=== PATIENT | male | born 1980 | race Caucasian/White ===

== ENCOUNTER 2017-08-22 11:17 | Observation (INO) ==
[2017-08-22] MEDS ORDERED: Ipratropium/Albuterol Neb 3 ML IH ONE (11:19)
[2017-08-22] MEDS ORDERED: 0.9 % Sodium Chloride 1,000 ML IVC ONE (11:19)
--- NOTE | 2017-08-22 11:24 | Emergency Department Note ---
Disposition Clinical Impression: Acute exacerbation of chronic obstructive airways disease Disposition: Admitted As Inpatient Condition: Fair Referrals: NONE,PCP [Primary Care Provider] - Forms: ED Satisfaction Letter Time of Disposition: 13:42 SOB HPI - General Chief Complaint: ED Shortness of Breath/Dyspnea Stated Complaint: KALYANI Time Seen by Provider: 08/22/17 11:19 Source: patient, EMS Mode of arrival: EMS Limitations: no limitations Nursing Notes Reviewed: Yes Vital Signs Reviewed: Yes - History of Present Illness 37-year-old who states he's been coughing and having some shortness of breath which has gotten progressively worse over the last 5 days. Patient was seen at an outside facility and diagnosed with "walking pneumonia". Squad was called on arrival he was in the low 90s pulse ox. Squad reports significant difficulty breathing initially. Patient was given a breathing treatment with some improvement. Should has significant exertional dyspnea. Patient was started on Zithromax yesterday without improvement. Pt Subjective Complaint: shortness of breath, cough Onset (ago): day(s) Context: recent illness (5) Severity: moderate Consistency/Duration: constant Improves with: nothing Worsens with: exertion Associated symptoms: Reports: chest pain (With cough), fever, cough Treatment prior to arrival: other (Antibiotics) Sputum production: Yes - Related Data Home Medications Medication Instructions Recorded Confirmed Amitriptyline HCl 100 mg PO HS 05/06/16 05/06/16 Aspirin 325 mg PO DAILY 05/06/16 05/06/16 Beclomethasone Diprop 80mcg [QVAR 2 puff IH BID 05/06/16 05/06/16 80 mcg] HYDROcodone/Acet 7.5/325 mg [[place] 1 tab PO Q8H PRN 05/06/16 05/06/16 7.5-325 mg] Naproxen [Naprosyn] 500 mg PO BID 05/06/16 05/06/16 Previous Rx's Medication Instructions Recorded Docusate [Colace] 100 mg PO BID PRN #90 capsule 05/08/16 Folic Acid 1 mg PO DAILY #30 tablet 05/08/16 HYDROcodone/Acet 7.5/325 mg [[place] 1 tab PO Q6HR PRN #28 tablet 05/08/16 7.5-325 mg] NIFEdipine [Procardia] 10 mg PO TID #90 capsule 05/08/16 Thiamine (B-1) [Vitamin B-1] 100 mg PO DAILY #30 tablet 05/08/16 Allergies Allergy/AdvReac Type Severity Reaction Status Date / Time codeine Allergy See Verified 08/22/17 11:18 Comments Constitutional: Reports: fever. Denies: chills, weakness, weight change Eyes: Denies: eye pain, eye discharge, vision change ENT ED: Denies: ear pain, throat pain, dental pain, hearing loss, epistaxis, congestion, dysphagia Cardiovascular: Denies: chest pain, palpitations, dyspnea on exertion, edema, syncope Respiratory: Reports: cough, dyspnea, wheezes. Denies: hemoptysis, stridor Gastrointestinal: Denies: abdominal pain, nausea, vomiting, diarrhea, constipation, hematemesis, melena, hematochezia Genitourinary: Denies: urgency, dysuria, frequency, hematuria Musculoskeletal: Denies: back pain, neck pain, arthralgia, myalgia Integumentary: Denies: rash, abrasion, lesions Neurological: Denies: headache, weakness, numbness, paresthesias, confusion, abnormal gait, vertigo Psychiatric: Denies: anxiety, depression, suicidal thoughts, homicidal thoughts , auditory hallucinations, visual hallucinations Endocrine: Denies: fatigue Hematological/Lymphatic: Denies: easy bleeding, easy bruising Allergic/Immunologic: Denies: facial swelling, urticaria Past Medical History - Past Medical History Medical history: Reports: hyperlipidemia, myocardial infarction, other Surgical history: Reports: other Psychiatric history: Reports: anxiety, depression - Social History Smoking Status: Current every day smoker Smokeless Tobacco Status: Yes Alcohol use: Reports: occasionally Drug use: Reports: marijuana Physical Exam - General Limitations: no limitations General appearance: alert, in no apparent distress - Head Head exam: atraumatic, normocephalic, normal inspection - Eye Eye exam: Present: normal appearance, PERRL, EOMI - ENT ENT exam: normal exam, normal oropharynx, mucous membranes moist - Neck Neck exam: Present: normal inspection, full ROM, trachea midline - Chest Chest inspection: Present: normal inspection, symmetric chest wall rise - Respiratory Respiratory exam: Present: wheezes, accessory muscle use, prolonged expiratory phase - Cardiovascular Cardiovascular exam: Present: regular rate, normal rhythm, normal heart sounds - Abdominal Exam Abdominal exam: Present: soft, Non-Tender. Absent: tenderness, distention, guarding, rebound, rigidity - Extremities Exam Extremities exam: Present: normal inspection, full ROM. Absent: tenderness, pedal edema - Expanded Lower Extremity Exam Neurovascular/Tendon exam: Absent: motor deficit, sensory deficit, tendon deficit Gait: observed and normal - Back Exam Back exam: Present: normal inspection, full ROM. Absent: tenderness - Neurological Exam Neurological exam: Present: alert, oriented X3 - Psychiatric Psychiatric exam: Present: normal affect, normal mood Course - Reevaluation(s) Reevaluation #1: 37-year-old male who has a 20+-pack-year history who comes in with increasing shortness of breath. On arrival patient has generalized wheezing. Patient was seen at outside facility and told had pneumonia. Workup here indicated his chest x-ray was negative EKG was normal. Time: 13:41 - Consultations Consultation #1: Discussed with Dr. Ayala, admit. Time: 13:41 Vital Signs Temperature 97.5 F L 08/22/17 11:22 Pulse Rate 91 08/22/17 11:22 Respiratory Rate 19 08/22/17 11:22 Blood Pressure 127/76 08/22/17 11:22 O2 Sat by Pulse Oximetry 100 08/22/17 11:22 Temperature 97.5 F L 08/22/17 11:22 Pulse Rate 83 08/22/17 13:21 Respiratory Rate 18 08/22/17 13:21 Blood Pressure 125/87 08/22/17 13:21 O2 Sat by Pulse Oximetry 100 08/22/17 13:21 Oxygen Delivery Oxygen Delivery Nasal Cannula Shortness of Breath/Dyspnea - Lab Data Result diagrams: 08/22/17 11:33 08/22/17 11:33 Lab Results 08/22/17 08/22/17 08/22/17 Range/Units 11:33 11:33 11:33 WBC 8.8 (4.3-11.1) K/mcL RBC 3.10 L (4.19-5.50) M/mcL Hgb 9.5 L (12.9-16.9) g/dL Hct 28.6 L (37.5-50.1) % MCV 92.3 (83.0-100.0) fL MCH 30.6 (28.0-33.3) pg MCHC 33.2 (31.6-35.5) g/dL RDW 13.0 (11.5-14.5) % Plt Count 403 H (140-400) K/mcL MPV 8.1 L (9.4-12.4) fL Immature Gran % 0.9 (0-4) % Seg Neutrophils % 52.4 % Lymphocytes % 33.2 % Monocytes % 8.8 % Eosinophils % 4.0 % Basophils % 0.7 % Neutrophils # 4.6 (1.6-8.9) K/mcL Lymphocytes # 2.9 (0.6-4.6) K/mcL Monocytes # 0.8 (0.0-1.3) K/mcL Eosinophils # 0.4 (0.0-0.6) K/mcL Basophils # 0.1 (0.0-0.2) K/mcL Immature Plt Fraction 1.3 (1.1-6.1) % Sodium 132 L (136-145) mEq/L Potassium 3.7 (3.5-5.1) mEq/L Chloride 99 (98-107) mEq/L Carbon Dioxide 27 (23-29) mEq/L BUN 15 (6-20) mg/dL Creatinine 0.84 (0.70-1.30) mg/dL Est GFR ( Amer) > 60 (> 60) Est GFR (Non-Af Amer) > 60 (> 60) BUN/Creatinine Ratio 18 (6-26) Glucose 61 L (70-105) mg/dL Calculated Osmolality 273 L (280-300) Lactic Acid 1.1 (0.5-2.2) mmol/L Calcium 8.3 L (8.6-10.3) mg/dL Total Bilirubin 0.4 (0.3-1.0) mg/dL Direct Bilirubin 0.1 (0.0-0.2) mg/dL Indirect Bilirubin 0.3 (0.0-1.2) mg/dL AST 13 (13-39) Units/L ALT 21 (7-52) Units/L Alkaline Phosphatase 62 (34-104) Units/L Troponin I (< 0.04) ng/mL B-Natriuretic Peptide (Less than 100) pg/mL Serum Total Protein 5.8 L (6.4-8.9) g/dL Albumin 3.6 (3.5-5.7) g/dL Globulin 2.2 L (2.4-3.5) g/dL Albumin/Globulin Ratio 1.6 (1.1-2.2) 08/22/17 08/22/17 Range/Units 11:33 11:33 WBC (4.3-11.1) K/mcL RBC (4.19-5.50) M/mcL Hgb (12.9-16.9) g/dL Hct (37.5-50.1) % MCV (83.0-100.0) fL MCH (28.0-33.3) pg MCHC (31.6-35.5) g/dL RDW (11.5-14.5) % Plt Count (140-400) K/mcL MPV (9.4-12.4) fL Immature Gran % (0-4) % Seg Neutrophils % % Lymphocytes % % Monocytes % % Eosinophils % % Basophils % % Neutrophils # (1.6-8.9) K/mcL Lymphocytes # (0.6-4.6) K/mcL Monocytes # (0.0-1.3) K/mcL Eosinophils # (0.0-0.6) K/mcL Basophils # (0.0-0.2) K/mcL Immature Plt Fraction (1.1-6.1) % Sodium (136-145) mEq/L Potassium (3.5-5.1) mEq/L Chloride (98-107) mEq/L Carbon Dioxide (23-29) mEq/L BUN (6-20) mg/dL Creatinine (0.70-1.30) mg/dL Est GFR ( Amer) (> 60) Est GFR (Non-Af Amer) (> 60) BUN/Creatinine Ratio (6-26) Glucose (70-105) mg/dL Calculated Osmolality (280-300) Lactic Acid (0.5-2.2) mmol/L Calcium (8.6-10.3) mg/dL Total Bilirubin (0.3-1.0) mg/dL Direct Bilirubin (0.0-0.2) mg/dL Indirect Bilirubin (0.0-1.2) mg/dL AST (13-39) Units/L ALT (7-52) Units/L Alkaline Phosphatase (34-104) Units/L Troponin I < 0.03 (< 0.04) ng/mL B-Natriuretic Peptide 6 (Less than 100) pg/mL Serum Total Protein (6.4-8.9) g/dL Albumin (3.5-5.7) g/dL Globulin (2.4-3.5) g/dL Albumin/Globulin Ratio (1.1-2.2) - EKG Data EKG attestation: Yes I reviewed and interpreted this EKG. EKG shows normal: Reports: sinus rhythm Rate: Reports: normal Rhythm: Reports: NSR Interpretation: Reports: no acute changes
[2017-08-22 11:45] LABS: Basophils # 0.1 K/mcL (0.0-0.2); Basophils % 0.7 %; Eosinophils # 0.4 K/mcL (0.0-0.6); Hematocrit 28.6 % (37.5-50.1); Hemoglobin 9.5 g/dL (12.9-16.9); Immature Granulocytes % 0.9 % (0-4); Immature Platelets 1.3 % (1.1-6.1); Lymphocytes # 2.9 K/mcL (0.6-4.6); Lymphocytes % 33.2 %; Mean Corpuscular HGB Conc 33.2 g/dL (31.6-35.5); Mean Corpuscular Hemoglobin 30.6 pg (28.0-33.3); Mean Corpuscular Volume 92.3 fL (83.0-100.0); Mean Platelet Volume 8.1 fL (9.4-12.4); Monocytes # 0.8 K/mcL (0.0-1.3); Monocytes % 8.8 %; Neutrophils # 4.6 K/mcL (1.6-8.9); Platelet Count 403 K/mcL (140-400); Segmented Neutrophils % 52.4 %
[2017-08-22 12:20] LABS: BUN/Creatinine Ratio 18 (6-26); Blood Urea Nitrogen 15 mg/dL (6-20); Calcium 8.3 mg/dL (8.6-10.3); Carbon Dioxide 27 mEq/L (23-29); Chloride 99 mEq/L (98-107); Glucose 61 mg/dL (70-105); Osmolality,Calculated 273 (280-300); Potassium 3.7 mEq/L (3.5-5.1); Sodium 132 mEq/L (136-145); eGFR For African Americans > 60 (> 60); eGFR For Non-African Americans > 60 (> 60)
[2017-08-22 13:13] LABS: Alanine Aminotransferase 21 Units/L (7-52); Albumin 3.6 g/dL (3.5-5.7); Albumin/Globulin Ratio 1.6 (1.1-2.2); Alkaline Phosphatase 62 Units/L (34-104); Aspartate Amino Transferase 13 Units/L (13-39); Bilirubin,Direct 0.1 mg/dL (0.0-0.2); Bilirubin,Indirect 0.3 mg/dL (0.0-1.2); Bilirubin,Total 0.4 mg/dL (0.3-1.0); Globulin 2.2 g/dL (2.4-3.5); Total Protein 5.8 g/dL (6.4-8.9)
[2017-08-22] MEDS ORDERED: Naloxone 0.4 MG/ML INJ IVP PRN (13:58)
--- NOTE | 2017-08-22 14:07 | Internal Med History&Physical ---
<Levi Last - Last Filed: 08/22/17 14:01> Date of Encounter: 08/22/17 Time of Encounter: 14:01 Assessment and Plan (1) Acute exacerbation of chronic obstructive airways disease Status: Acute acute exacerbation of COPD presents today with exertional dyspnea and cough x5- days. CXR unremarkable, lungs diminished to auscultation, -Duoneb q4h karin -Continuous tele, and Spo2 monitoring -Azithromycin IVPB daily (2) Pericarditis Status: Suspected Chest pain and orthopnea. He reports the chest pain if exacerbated with lying and relieved by sitting up. Denies any IV drug use history, however, has tracks upon both upper extremities. There is some concern for pleural effusion , heart tones distant to auscultation. No ST changes per EKG, troponin negative -urine drug screen -echocardiogram- follow -trend troponin -blood cultures Qualifiers: Pericarditis type: unspecified type Chronicity: unspecified Qualified Code(s): I31.9 - Disease of pericardium, unspecified (3) Anemia Status: Acute Presents today with shortness of breath exacerbated with activity and lying flat. Found to have an H&H of 9.5/28.6. CXR negative for acute process. The anemia is also contributing to his clinical presentation. He denies any hematemesis, hematochezia or melena. Lungs diminished to auscultation, he is mildly SOB with activity, no hypoxia, Sp02 100% on room air while resting -Iron studies, B12, Folate -occult blood stool CBCD in the morning Qualifiers: Anemia type: unspecified type Qualified Code(s): D64.9 - Anemia, unspecified (4) DVT prophylaxis Status: Acute ambulate ad saira. Internal Medicine - H&P: HPI Chief complaint: shortness of breath Admitted From: Home Plans for Post Hospital Care: Home History of present illness: Mr. De Oliveira is a 37 year old male with no prior PMH. He presents to [facility] today with shortness of breath, and a productive cough that has been getting progressively worse over the last 5-days. He states that he was at [facility] yesterday and was diagnosed with "walking pneumonia". He presented to the ED with exertional dyspnea with Spo2 in the low 90's He admits to subjective fevers, productive cough, palpitations, tachycardia, Chest pain exacerbated with lying flat and improves with sitting upright, orthopnea, and hemoptysis. He denies any drug use except marijuana, however, he appears to have multiple tracks on BUE. He denies any edema, abdominal pain, N/V/D, flank pain, dysuria, or extremity swelling/pain. He was given bronchodilators in the ED and his dyspnea somewhat improved. CXR today is negative. He does appear to have some anemia with a H&H of 9.5/28.6. Past Med Surg Social Fam HX - Past Medical History Medical history: hyperlipidemia, myocardial infarction, other Psychiatric history: anxiety, depression - Past Surgical History Surgical History: other - Social History Smoking Status: Current every day smoker Smokeless Tobacco Status: Yes Alcohol use: occasionally Drug use: marijuana - Family History Grandfather Adopted: No Hx Family Cancer: Yes (Lung cancer) Internal Medicine - H&P: Meds Azithromycin [Azithromycin 6-Tab Pack] 1 tab PO AD 08/22/17 [History] Cyclobenzaprine [Flexeril] 10 mg PO TID 08/22/17 [History] FLUoxetine HCl [PROzac] 20 mg PO BID 08/22/17 [History] HYDROcodone/Acet 7.5/325 mg [[place] 7.5-325 mg] 1 tab PO Q8H PRN 08/22/17 [ History] Cyanocobalamin/Folic Acid [Vitamin X99-Wchxk Acid Tablet] 1 each PO DAILY #30 tablet 08/24/17 [Rx] 3 Allergy/AdvReac Type Severity Reaction Status Date / Time acetaminophen Allergy Difficulty Verified 08/22/17 17:08 [From Tylenol-Codeine #3] Breathing codeine Allergy See Verified 08/22/17 11:18 Comments All Systems PM: A 10-system review of systems was performed and is negative for pertinent findings except as documented above in the HPI. - Constitutional Constitutional: as per HPI - EENT Eyes: no change in vision, no discharge, no pain, no photophobia Ears: no ear discharge, no ear pain, no tinnitus Nose, mouth and throat: no dysphagia, no nasal discharge, no neck pain, no sore throat - Cardiovascular Cardiovascular ROS IM: as per HPI, chest pain, dyspnea, dyspnea on exertion, orthopnea, palpitations, paroxysmal nocturnal dyspnea, no edema, no syncope - Respiratory Respiratory: cough, hemoptysis, pain with cough, no dyspnea, no dyspnea on exertion, no wheezing, no pain on inspiration, no chest congestion, no excessive phlegm production, no change in phlegm color - Gastrointestinal Gastrointestinal: no abdominal pain, no diarrhea, no hematemesis, no hematochezia, no melena, no nausea, no vomiting - Musculoskeletal Musculoskeletal ROS IM: no numbness, no tingling - Integumentary Integumentary IM: no rash, no unusual bruising - Neurological Neurological ROS: no confusion, no convulsions, no focal weakness, no numbness, no tingling, no tremor(s) - Constitutional Vitals: Temp Pulse Resp BP Pulse Ox 97.5 F L 83 18 125/87 100 08/22/17 11:22 08/22/17 13:21 08/22/17 13:21 08/22/17 13:21 08/22/17 13:21 General appearance: Present: cooperative, A&O X 3, no acute distress, answers questions appropriately - Head Head exam: Present: atraumatic, normocephalic - Eye Eye exam: Present: PERRL, conjuntiva pink, sclera anicteric Pupils: Present: PERRL - Neck Neck exam general surgery: Present: supple, trachea midline. Absent: lymphadenopathy - Respiratory Respiratory exam: Present: decreased breath sounds, CTAB. Absent: accessory muscle use, chest wall tenderness, prolonged expiratory phase, rales, respiratory distress, rhonchi, stridor, wheezes, tachypnea - Cardiovascular Cardiovascular exam: Present: distant heart sounds, RRR, +S1, +S2. Absent: diastolic murmur, gallop, irregular rhythm, JVD, rubs, systolic murmur, tachycardia - GI/Abdominal GI/Abdominal exam: Present: normal bowel sounds, soft, no peritoneal signs. Absent: distended, tenderness - Extremities Exam Extremities exam: Present: warm, radial pulses palpable and symmetrical. Absent : calf tenderness, cyanotic, pedal edema - Neurological Exam Neurological exam: Present: CN II-XII intact, oriented X3, no focal deficits. Absent: pronater drift, facial droop, speech deficit - Skin Skin exam: Present: dry, intact Internal Med - H&P Results - Labs CBC & Chem 7: 08/22/17 11:33 08/22/17 11:33 Labs: Short CBC 02/10/18 Range/Units 11:33 WBC 8.8 (4.3-11.1) K/mcL Hgb 9.5 L (12.9-16.9) g/dL Hct 28.6 L (37.5-50.1) % Plt Count 403 H (140-400) K/mcL Neutrophils # 4.6 (1.6-8.9) K/mcL BMP 08/22/17 11:33 Sodium 132 L Potassium 3.7 Chloride 99 Carbon Dioxide 27 BUN 15 Creatinine 0.84 Glucose 61 L Calcium 8.3 L Cardiac Enzymes 08/22/17 Range/Units 11:33 Troponin I < 0.03 (< 0.04) ng/mL Liver Function 08/22/17 Range/Units 11:33 Total Bilirubin 0.4 (0.3-1.0) mg/dL Direct Bilirubin 0.1 (0.0-0.2) mg/dL AST 13 (13-39) Units/L ALT 21 (7-52) Units/L Alkaline Phosphatase 62 (34-104) Units/L Albumin 3.6 (3.5-5.7) g/dL - EKG Data -: EKG Interpreted by Myself EKG shows normal: sinus rhythm Rate: normal - Impressions ITS Impressions Chest X-Ray 08/22/17 11:19 IMPRESSION: No acute cardiopulmonary process. D/ / 08/22/2017 12:50:53 Tom Humphries MD / [facility] Interpreting Provider: Tom Humphries MD <Aren Ayala - Last Filed: 08/24/17 19:56> Date of Encounter: 08/24/17 Internal Medicine - H&P: HPI History of present illness: Mr. De Oliveira is a 37 year old male All Systems PM: A 10-system review of systems was performed and is negative for pertinent findings except as documented above in the HPI. - Constitutional Vitals: Temp Pulse Resp BP Pulse Ox 98.1 F 90 17 149/76 99 08/24/17 04:48 08/24/17 04:48 08/24/17 08:09 08/24/17 04:48 08/24/17 08:09 Internal Med - H&P Results - Labs CBC & Chem 7: 08/24/17 06:48 08/23/17 03:44 Labs: Short CBC 08/24/17 Range/Units 06:48 WBC 7.8 (4.3-11.1) K/mcL Hgb 9.0 L (12.9-16.9) g/dL Hct 27.2 L (37.5-50.1) % Plt Count 411 H (140-400) K/mcL Neutrophils # 4.5 (1.6-8.9) K/mcL - Impressions ITS Impressions Echocardiogram 08/23/17 13:55 Impressions: Normal left ventricular diastolic function. LVEF 55-60%. No significant valvular dysfunction. Left Ventricular Wall Motion: Rest Echo Findings All wall segments showed normal motion. Findings: Study Quality * Technically adequate exam. Right Ventricle * Normal right ventricular structure and function. Left Atrium * Normal left atrial size. Mitral Valve * Normal mitral valve structure and function. Interatrial Septum * No evidence of PFO by color Doppler. Aorta * Normally sized aortic root. Pericardium * The pericardium appears normal. ECG Findings * Normal sinus rhythm. Tricuspid Valve * Trace tricuspid regurgitation. * No tricuspid stenosis. * Estimated RVSP is 11 mmHg. * No evidence of pulmonary hypertension. Aortic Valve * No aortic stenosis. * Aortic valve not well visualized. * Trace aortic regurgitation. IVC * Normal IVC dimensions and inspiratory collapse. Left Ventricle * Normal left ventricular diastolic function. * LVEF 55-60%. Right Atrium * Mildly dilated right atrium. - Attending Attestation I examined this patient and my medical decision-making was reviewed with the Resident Physician. I agree with the documented findings, disposition and treatment plan as described except to the extent set forth below.
[2017-08-22 15:02] LABS: Amphetamine Screen,Urine Negative ng/mL (Cutoff=1000); Barbiturate Screen,Urine Negative ng/mL (Cutoff=200); Benzodiazepines Screen,Urine Negative ng/mL (Cutoff=200); Cannabinoid Screen,Urine Positive ng/mL (Cutoff = 50); Cocaine Screen,Urine Negative ng/mL (Cutoff= 300); Opiate Screen,Urine Negative ng/mL (Cutoff=300); Phencyclidine Screen,Urine Negative ng/mL (Cutoff=25)
[2017-08-22 15:21] LABS: Folate 14.6 ng/mL (3.0-16.0)
[2017-08-22 15:26] LABS: % Iron Saturation 13 % (20-55); Iron 45 mcg/dL (65-175); Transferrin 244 mg/dL (203-362)
[2017-08-22] MEDS: Ipratropium/Albuterol Neb 3 ML IH SCH ×2 (15:49→20:46)
[2017-08-22] MEDS: FLUoxetine 20 MG CAPSULE PO SCH (19:44)
[2017-08-22] MEDS ORDERED: clonazePAM 1 MG TABLET PO ONE (20:43)
[2017-08-23] MEDS: Ipratropium/Albuterol Neb 3 ML IH SCH ×7 (00:34→23:54)
[2017-08-23] MEDS ORDERED: Ibuprofen 400 MG TABLET PO PRN (03:14)
[2017-08-23 04:26] LABS: Basophils % 0.5 %; Eosinophils # 0.4 K/mcL (0.0-0.6); Eosinophils % 5.2 %; Hematocrit 25.3 % (37.5-50.1); Hemoglobin 8.5 g/dL (12.9-16.9); Immature Granulocytes % 0.7 % (0-4); Lymphocytes # 3.5 K/mcL (0.6-4.6); Lymphocytes % 45.4 %; Mean Corpuscular HGB Conc 33.6 g/dL (31.6-35.5); Mean Corpuscular Hemoglobin 30.8 pg (28.0-33.3); Mean Corpuscular Volume 91.7 fL (83.0-100.0); Mean Platelet Volume 8.4 fL (9.4-12.4); Monocytes # 0.5 K/mcL (0.0-1.3); Monocytes % 7.1 %; Neutrophils # 3.1 K/mcL (1.6-8.9); Platelet Count 312 K/mcL (140-400); Red Blood Count 2.76 M/mcL (4.19-5.50); Red Cell Distribution Width 13.2 % (11.5-14.5); Segmented Neutrophils % 41.1 %
[2017-08-23 05:12] LABS: BUN/Creatinine Ratio 16 (6-26); Blood Urea Nitrogen 11 mg/dL (6-20); Calcium 8.2 mg/dL (8.6-10.3); Carbon Dioxide 26 mEq/L (23-29); Chloride 107 mEq/L (98-107); Glucose 94 mg/dL (70-105); Osmolality,Calculated 287 (280-300); Potassium 4.2 mEq/L (3.5-5.1); Sodium 139 mEq/L (136-145); eGFR For African Americans > 60 (> 60); eGFR For Non-African Americans > 60 (> 60)
[2017-08-23] MEDS: FLUoxetine 20 MG CAPSULE PO SCH ×2 (07:52→19:10)
--- NOTE | 2017-08-23 13:54 | Internal Med Progress Note ---
Date of Encounter: 08/23/17 Time of Encounter: 09:45 - Assessment and plan (1) Anemia Current Visit: Yes Status: Acute Assessment and plan: Patient remains anemic. We will consult GI for further evaluation. Continue to monitor blood counts. Patient may need upper GI endoscopy. Vitamin B12 levels are low. We will replete with subcutaneous injections. Qualifiers: Anemia type: B12 deficiency Vitamin B12 deficiency anemia type: other B12 deficiency Qualified Code(s): D51.8 - Other vitamin B12 deficiency anemias (2) Acute exacerbation of chronic obstructive airways disease Current Visit: Yes Status: Acute Assessment and plan: Improved. Continue bronchodilators. (3) Pericarditis Current Visit: Yes Status: Ruled-out Assessment and plan: Cardiac echocardiogram does not show any signs of pericarditis or effusion. Qualifiers: Pericarditis type: unspecified type Chronicity: unspecified Qualified Code(s): I31.9 - Disease of pericardium, unspecified (4) DVT prophylaxis Current Visit: Yes Status: Acute (5) Bipolar disorder Current Visit: Yes Status: Suspected Assessment and plan: Patient having sweats or thoughts and ideas. Concerning for underlying bipolar disorder. He does have a history of traumatic brain injury and depression. Takes Prozac. She wants to see psychiatrist. We will consult Psychiatry once medically stable. Qualifiers: Active/Remission status: currently active Current bipolar episode type: manic Current episode severity: mild Qualified Code(s): F31.11 - Bipolar disorder, current episode manic without psychotic features, mild - Subjective Interval history: Patient is awake and alert. Appears to having flights of thoughts and ideas. Denies any chest pain or shortness of breath at this time. Does complain of generalized body aches. - Constitutional Vitals: Temp Pulse Resp BP Pulse Ox 98.6 F 93 17 119/78 98 08/23/17 09:58 08/23/17 09:58 08/23/17 11:24 08/23/17 09:58 08/23/17 11:24 General appearance: Present: cooperative, A&O X 3, no acute distress, answers questions appropriately - Neck Neck exam general surgery: Present: supple, trachea midline. Absent: lymphadenopathy - Respiratory Respiratory exam: Present: CTAB. Absent: accessory muscle use, rales, rhonchi, wheezes - Cardiovascular Cardiovascular exam: Present: RRR, +S1, +S2. Absent: diastolic murmur, gallop, rubs, systolic murmur - GI/Abdominal GI/Abdominal exam: Present: normal bowel sounds, soft, no peritoneal signs. Absent: distended, tenderness - Extremities Exam Extremities exam: Present: warm, radial pulses palpable and symmetrical. Absent : calf tenderness, cyanotic, pedal edema - Neurological Exam Neurological exam: Present: alert, CN II-XII intact, oriented X3, no focal deficits. Absent: facial droop, speech deficit Internal Medicine: Result - Labs CBC & Chem 7: 08/23/17 03:44 08/23/17 03:44 Labs: Short CBC 08/23/17 Range/Units 03:44 WBC 7.6 (4.3-11.1) K/mcL Hgb 8.5 L (12.9-16.9) g/dL Hct 25.3 L (37.5-50.1) % Plt Count 312 (140-400) K/mcL Neutrophils # 3.1 (1.6-8.9) K/mcL BMP 08/23/17 03:44 Sodium 139 Potassium 4.2 Chloride 107 Carbon Dioxide 26 BUN 11 Creatinine 0.70 Glucose 94 Calcium 8.2 L Cardiac Enzymes 08/22/17 Range/Units 18:22 Troponin I < 0.03 (< 0.04) ng/mL - Impressions Impressions Echocardiogram 08/23/17 13:55 Impressions: Normal left ventricular diastolic function. LVEF 55-60%. No significant valvular dysfunction. Left Ventricular Wall Motion: Rest Echo Findings All wall segments showed normal motion. Findings: Study Quality * Technically adequate exam. Right Ventricle * Normal right ventricular structure and function. Left Atrium * Normal left atrial size. Mitral Valve * Normal mitral valve structure and function. Interatrial Septum * No evidence of PFO by color Doppler. Aorta * Normally sized aortic root. Pericardium * The pericardium appears normal. ECG Findings * Normal sinus rhythm. Tricuspid Valve * Trace tricuspid regurgitation. * No tricuspid stenosis. * Estimated RVSP is 11 mmHg. * No evidence of pulmonary hypertension. Aortic Valve * No aortic stenosis. * Aortic valve not well visualized. * Trace aortic regurgitation. IVC * Normal IVC dimensions and inspiratory collapse. Left Ventricle * Normal left ventricular diastolic function. * LVEF 55-60%. Right Atrium * Mildly dilated right atrium. Consult Discharge Plan - Plan Referrals: NONE,PCP [Primary Care Provider] -
[2017-08-23] MEDS: Folic Acid 1 MG TABLET PO SCH (15:55)
[2017-08-23] MEDS: Cyanocobalamin (B-12) 1,000 MCG/ML VIAL SQ SCH (15:55)
[2017-08-23] MEDS: *HR* HYDROcodone/Acet 7.5/325 mg TABLET PO PRN ×2 (17:30)
[2017-08-23 19:10] LABS: Hematocrit 27.7 % (37.5-50.1)
[2017-08-24] MEDS: Ipratropium/Albuterol Neb 3 ML IH SCH ×3 (04:41→08:08)
[2017-08-24 04:50] VITALS: BP 149/76
[2017-08-24 07:38] LABS: Basophils # 0.1 K/mcL (0.0-0.2); Basophils % 0.6 %; Eosinophils # 0.5 K/mcL (0.0-0.6); Eosinophils % 5.8 %; Hematocrit 27.2 % (37.5-50.1); Immature Granulocytes % 0.6 % (0-4); Lymphocytes # 2.2 K/mcL (0.6-4.6); Lymphocytes % 28.4 %; Mean Corpuscular HGB Conc 33.1 g/dL (31.6-35.5); Mean Corpuscular Volume 93.8 fL (83.0-100.0); Mean Platelet Volume 8.3 fL (9.4-12.4); Monocytes # 0.6 K/mcL (0.0-1.3); Monocytes % 7.5 %; Neutrophils # 4.5 K/mcL (1.6-8.9); Platelet Count 411 K/mcL (140-400); Red Cell Distribution Width 13.4 % (11.5-14.5); Segmented Neutrophils % 57.1 %
--- NOTE | 2017-08-24 07:39 | Electrocardiograph Report ---
[address] [place], [place] [address] Test Date: 2017-08-22 Pat Name: Dre De Oliveira Department: 103 Room: 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
[2017-08-24] MEDS: Cyanocobalamin (B-12) 1,000 MCG/ML VIAL SQ SCH (08:03)
[2017-08-24] MEDS: *HR* HYDROcodone/Acet 7.5/325 mg TABLET PO PRN (08:03)
[2017-08-24] MEDS: Folic Acid 1 MG TABLET PO SCH (08:03)
[2017-08-24] MEDS: FLUoxetine 20 MG CAPSULE PO SCH (08:03)
[2017-08-24] MEDS ORDERED: Ipratropium/Albuterol Neb 3 ML IH PRN (09:48)
[2017-08-24] MEDS ORDERED: FLUARIX QUAD 2017-18 36MOS UP/PF 0.5 ML SYRINGE IM ONE (12:06)
--- NOTE | 2017-08-24 13:11 | Internal Med Progress Note ---
Date of Encounter: 08/24/17 Time of Encounter: 10:50 - Assessment and plan (1) Anemia Status: Acute Assessment and plan: Blood counts have remained stable. Gastroenterology consultation. Plan for upper GI endoscopy. Continue vitamin B12 supplementation. Qualifiers: Anemia type: B12 deficiency Vitamin B12 deficiency anemia type: other B12 deficiency Qualified Code(s): D51.8 - Other vitamin B12 deficiency anemias (2) Acute exacerbation of chronic obstructive airways disease Status: Acute Assessment and plan: Improved. No longer wheezing. Continue bronchodilators as needed. (3) DVT prophylaxis Status: Acute (4) Bipolar disorder Status: Suspected Assessment and plan: We will consult psychiatry once upper GI endoscopy is done Qualifiers: Active/Remission status: currently active Current bipolar episode type: manic Current episode severity: mild Qualified Code(s): F31.11 - Bipolar disorder, current episode manic without psychotic features, mild - Subjective Interval history: Patient awake and alert. Denies any new complaints. Continues to have flights of thoughts and ideas. He is concerned that he cannot eat as he is being scheduled for upper GI endoscopy. Explained to him the procedure and that he will will treat soon after. Expressed understanding. - Constitutional Vitals: Temp Pulse Resp BP Pulse Ox 98.1 F 90 17 149/76 99 08/24/17 04:48 08/24/17 04:48 08/24/17 08:09 08/24/17 04:48 08/24/17 08:09 General appearance: Present: cooperative, A&O X 3, no acute distress, answers questions appropriately - Respiratory Respiratory exam: Present: CTAB. Absent: accessory muscle use, rales, rhonchi, wheezes - Cardiovascular Cardiovascular exam: Present: RRR, +S1, +S2. Absent: diastolic murmur, gallop, rubs, systolic murmur - GI/Abdominal GI/Abdominal exam: Present: normal bowel sounds, soft, no peritoneal signs. Absent: distended, tenderness - Extremities Exam Extremities exam: Present: warm, radial pulses palpable and symmetrical. Absent : calf tenderness, cyanotic, pedal edema Internal Medicine: Result - Labs CBC & Chem 7: 08/24/17 06:48 08/23/17 03:44 Labs: Short CBC 08/23/17 08/24/17 Range/Units 18:58 06:48 WBC 7.8 (4.3-11.1) K/mcL Hgb 9.0 L 9.0 L (12.9-16.9) g/dL Hct 27.7 L 27.2 L (37.5-50.1) % Plt Count 411 H (140-400) K/mcL Neutrophils # 4.5 (1.6-8.9) K/mcL Consult Discharge Plan - Plan Instructions: Anemia (GEN) Referrals: NONE,PCP [Primary Care Provider] - 08/31/17 1:45 pm (Niki Pena [employer] OFFICER 08/31/17 at 1:45 PM [facility] [place] [address])
== END 2017-08-24 12:25 | disposition left against medical advice (07) ==
LOC: EMEROO 11:17 → 3NENU 11:17 → SUATTDRO 14:44 → 3NENU 15:17 → 1NENUPED 08-24 08:49
PROVIDERS: ADMIT Internal Medicine Cardiovascular Disease; ATTEND Internal Medicine

== ENCOUNTER 2019-02-16 17:11 | Observation (INO) ==
[2019-02-16 18:43] LABS: Hematocrit 18.8 % (37.5-50.1); Hemoglobin 6.3 g/dL (12.9-16.9); Immature Granulocytes % 0.4 % (0-4); Lymphocytes % 25.7 %; Mean Corpuscular HGB Conc 33.5 g/dL (31.6-35.5); Mean Corpuscular Hemoglobin 32.3 pg (28.0-33.3); Mean Corpuscular Volume 96.4 fL (83.0-100.0); Mean Platelet Volume 8.8 fL (9.4-12.4); Monocytes % 5.8 %; Platelet Count 236 K/mcL (140-400); Red Blood Count 1.95 M/mcL (4.19-5.50); Red Cell Distribution Width 13.4 % (11.5-14.5); Segmented Neutrophils % 66.1 %; White Blood Count 10.2 K/mcL (4.3-11.1)
[2019-02-16 18:44] LABS: Basophils # 0.1 K/mcL (0.0-0.2); Basophils % 0.5 %; Eosinophils # 0.2 K/mcL (0.0-0.6); Eosinophils % 1.5 %; Lymphocytes # 2.6 K/mcL (0.6-4.6); Monocytes # 0.6 K/mcL (0.0-1.3); Neutrophils # 6.7 K/mcL (1.6-8.9)
[2019-02-16 19:00] LABS: Alanine Aminotransferase 11 Units/L (7-52); Albumin 3.6 g/dL (3.5-5.7); Alkaline Phosphatase 46 Units/L (34-104); Aspartate Amino Transferase 13 Units/L (13-39); BUN/Creatinine Ratio 12 (6-26); Bilirubin,Direct 0.1 mg/dL (0.0-0.2); Bilirubin,Indirect 0.3 mg/dL (0.0-1.2); Bilirubin,Total 0.4 mg/dL (0.3-1.0); Blood Urea Nitrogen 8 mg/dL (6-20); Calcium 8.6 mg/dL (8.6-10.3); Carbon Dioxide 24 mEq/L (23-29); Chloride 109 mEq/L (98-107); Ethanol < 10 mg/dL (Less than 10); Globulin 1.8 g/dL (2.4-3.5); Glucose 96 mg/dL (70-105); Osmolality,Calculated 284 (280-300); Potassium 3.7 mEq/L (3.5-5.1); Sodium 138 mEq/L (136-145); Total Protein 5.4 g/dL (6.4-8.9); eGFR For African Americans > 60 (> 60); eGFR For Non-African Americans > 60 (> 60)
[2019-02-16 19:02] LABS: Amphetamine Screen,Urine Negative ng/mL (Cutoff=1000); Barbiturate Screen,Urine Negative ng/mL (Cutoff=200); Benzodiazepines Screen,Urine Negative ng/mL (Cutoff=200); Cannabinoid Screen,Urine Positive ng/mL (Cutoff = 50); Cocaine Screen,Urine Negative ng/mL (Cutoff= 300); Opiate Screen,Urine Negative ng/mL (Cutoff=300); Phencyclidine Screen,Urine Negative ng/mL (Cutoff=25)
[2019-02-16 19:48] LABS: Thyroid Stimulating Hormone 1.918 mcIU/mL (0.340-5.600)
[2019-02-17] MEDS ORDERED: Naloxone 0.4 MG/ML INJ IVP PRN (00:14)
[2019-02-17 00:53] LABS: Hematocrit 20.9 % (37.5-50.1); Hemoglobin 6.9 g/dL (12.9-16.9); Mean Corpuscular Hemoglobin 31.1 pg (28.0-33.3); Mean Corpuscular Volume 94.1 fL (83.0-100.0); Platelet Count 240 K/mcL (140-400); Red Blood Count 2.22 M/mcL (4.19-5.50); Red Cell Distribution Width 14.3 % (11.5-14.5); White Blood Count 10.2 K/mcL (4.3-11.1)
[2019-02-17] MEDS: 0.9 % Sodium Chloride 1,000 ML IVC SCH (03:43)
[2019-02-17 05:57] LABS: Hematocrit 21.1 % (37.5-50.1); Mean Corpuscular HGB Conc 33.2 g/dL (31.6-35.5); Mean Corpuscular Hemoglobin 31.5 pg (28.0-33.3); Platelet Count 251 K/mcL (140-400); Red Blood Count 2.22 M/mcL (4.19-5.50); Red Cell Distribution Width 14.8 % (11.5-14.5); White Blood Count 8.9 K/mcL (4.3-11.1)
[2019-02-17 06:21] LABS: BUN/Creatinine Ratio 12 (6-26); Blood Urea Nitrogen 8 mg/dL (6-20); Calcium 8.6 mg/dL (8.6-10.3); Carbon Dioxide 24 mEq/L (23-29); Chloride 107 mEq/L (98-107); Glucose 98 mg/dL (70-105); Osmolality,Calculated 288 (280-300); Potassium 3.9 mEq/L (3.5-5.1); Sodium 140 mEq/L (136-145); eGFR For African Americans > 60 (> 60); eGFR For Non-African Americans > 60 (> 60)
[2019-02-17] MEDS: Pantoprazole 40 MG VIAL IVP SCH (06:57)
[2019-02-17] MEDS ORDERED: Ondansetron 4 MG/2 ML VIAL IVP PRN (08:10)
[2019-02-17 09:06] LABS: Iron 25 mcg/dL (65-175)
[2019-02-17 09:36] LABS: % Iron Saturation 8 % (20-55); Transferrin 238 mg/dL (203-362)
[2019-02-17] MEDS ORDERED: 0.9 % Sodium Chloride Mini Bag 100 ML ONE (09:42)
[2019-02-17 15:58] LABS: Hematocrit 27.1 % (37.5-50.1); Mean Corpuscular HGB Conc 32.8 g/dL (31.6-35.5); Mean Corpuscular Hemoglobin 31.2 pg (28.0-33.3); Mean Corpuscular Volume 95.1 fL (83.0-100.0); Mean Platelet Volume 8.7 fL (9.4-12.4); Platelet Count 290 K/mcL (140-400); Red Blood Count 2.85 M/mcL (4.19-5.50); Red Cell Distribution Width 15.8 % (11.5-14.5); White Blood Count 10.8 K/mcL (4.3-11.1)
[2019-02-17 16:07] LABS: Hemoglobin 8.9 g/dL (12.9-16.9)
[2019-02-17] MEDS: levETIRAcetam 250 MG TABLET PO SCH (16:27)
[2019-02-17] MEDS: D5% in Lactated Ringers 1,000 ML IVC SCH (16:28)
[2019-02-17] MEDS ORDERED: SODIUM CHLORIDE/NAHCO3/KCL/PEG 4,000 ML SOLN.RECON PO ONE (17:00)
[2019-02-17] MEDS ORDERED: risperiDONE 1 MG TABLET PO SCH (21:00)
[2019-02-18] MEDS: D5% in Lactated Ringers 1,000 ML IVC SCH (04:18)
[2019-02-18] MEDS: 0.9 % Sodium Chloride 1,000 ML IVC SCH (04:19)
[2019-02-18] MEDS: Pantoprazole 40 MG VIAL IVP SCH (05:54)
[2019-02-18] MEDS: levETIRAcetam 250 MG TABLET PO SCH (05:55)
[2019-02-18] MEDS ORDERED: Propofol 500 MG/50 ML INFUS..BTL ONE (07:30)
[2019-02-18] MEDS ORDERED: Lidocaine -MPF 2% 2 ML VIAL ONE ×2 (07:36→07:55)
[2019-02-18 08:05] LABS: Hematocrit 22.6 % (37.5-50.1); Hemoglobin 7.5 g/dL (12.9-16.9); Mean Corpuscular HGB Conc 33.2 g/dL (31.6-35.5); Mean Corpuscular Hemoglobin 31.5 pg (28.0-33.3); Mean Platelet Volume 9.2 fL (9.4-12.4); Platelet Count 280 K/mcL (140-400); Red Blood Count 2.38 M/mcL (4.19-5.50)
[2019-02-18 11:29] VITALS: BP 152/92
== END 2019-02-18 12:31 | disposition home or self-care (01) ==
LOC: 3ANU 17:11 → EMEROOARM 17:11 → SUATTDRO 21:20 → 3ANU 22:16
PROVIDERS: ADMIT Family Medicine; ATTEND Internal Medicine